=== PATIENT | male | born 1960 | race Caucasian/White ===

== ENCOUNTER 2021-02-20 06:01 | Day surgery (SDC) | payer MEDICARE ==
[~2021-02-20 06:01] MED LIST: Lactated Ringers 1,000 ML IV SCH
[2021-02-20] MEDS ORDERED: Lactated Ringers 1,000 ML IV SCH (06:30)
[2021-02-20] MEDS ORDERED: DIPRIVAN 200 MG/20 ML IV ONE (07:49)
[2021-02-20] MEDS ORDERED: Ketamine HCl 50 MG/ML ONE (07:50)
[2021-02-20] MEDS ORDERED: ROBINUL ONE (07:51)
[2021-02-20 08:59] VITALS: O2SAT 97
[2021-02-20 09:14] VITALS: BP 142/84; PULSE 87
--- NOTE | 2021-02-20 14:43 | OP ---
SURGERY DATE/TIME: 02/20/2021 0750 PREOPERATIVE DIAGNOSIS: Nausea. POSTOPERATIVE DIAGNOSES: 1) Mild diabetic gastroparesis. 2) Moderate gastritis. PROCEDURE: Esophagogastroduodenoscopy. SURGEON: Dr. Rosales. ANESTHESIA: Medications were given by the anesthesia department. BRIEF HISTORY: The patient is a 60 year old white male patient who reports he has problems with chronic nausea over the past month and the past couple of weeks he has been getting better. The patient denies any medications but does take aspirin on a regular basis and he is known to be diabetic. The patient was felt to need to have endoscopic evaluation. He was appraised of the risks of the procedure including the risk of perforation, phlebitis, untoward reaction to medication, bleeding and missed lesions. The patient verbalized his understanding and desired to have the procedure performed. DESCRIPTION OF PROCEDURE: The patient was given the medications by the anesthesia department. He had continuous pulse oximetry, ECG monitoring, intermittent blood pressure monitoring and tidal CO2 monitoring during the examination. He was placed in the left lateral decubitus position. A bite block was placed and the flexible Olympus gastroscope was used to intubate the oropharynx. A view of the larynx was obtained and was essentially normal. The scope was easily introduced in the esophagus which appeared to be normal throughout its length. The stomach was entered where gastric food stuffs were still in his stomach. We were able to pass the scope around this to the gastric antrum. The pylorus is widely patent. The scope was able to be passed into the duodenum which appeared to be essentially normal. The scope was withdrawn towards the stomach. Again, retroflex view was obtained but was partially occluded obscured by the presence of the gastric food stuffs. The scope was then redirected in the gastric antrum and biopsies were obtained to rule out the presence of Helicobacter pylori-type organisms. The scope was then removed from the patient who tolerated the procedure well and was sent back to outpatient recovery in good condition.
== END 2021-02-20 09:18 | disposition home or self-care (01) ==
LOC: SDC 06:01
PROVIDERS: ATTEND Family Medicine
DX: K29.70 Gastritis, unspecified, without bleeding (principal); E11.43 Type 2 diabetes mellitus with diabetic autonomic (poly)neuropathy; K31.84 Gastroparesis; Z79.899 Other long term (current) drug therapy
CPT/HCPCS: 82947; 88305; 88312; J2704

== ENCOUNTER 2021-08-19 14:53 | Emergency (ER) | payer MEDICARE ==
[2021-08-19 15:31] LABS: Absolute Neutrophil Ct (ANC) 5.76 (1.4-6.9); Basophil (Absolute #) 0.02 (0-0.4); Eosinophil % 1.8 % (0.00-5.0); Eosinophil (Absolute #) 0.15 (0-0.5); Hematocrit 50.5 % (42-50); Hemoglobin 16.2 gm/dl (12.5-18.0); Lymphocyte (Absolute #) 1.67 (1.0-4.6); Lymphocytes % 20.2 % (24.0-44.0); Mean Cell Volume 95.8 fl (78-100); Mean Corpuscular Hemoglobin 30.7 pg (26-32); Mean Corpuscular Hgb Concent. 32.1 g/dl (32-36); Mean Platelet Volume 10.5 fl (7.5-11.0); Monocyte (Absolute #) 0.66 (0.0-1.3); Neutrophil % 69.8 % (36.0-66.0); Platelet Count 256 K/mm3 (150-450); Red Blood Count 5.27 M/mm3 (4.1-5.6); Red Cell Distribution Width 14.9 % (11.5-14.0); White Blood Count 8.3 K/mm3 (4.0-10.5)
[2021-08-19 15:39] LABS: INR 1.1 (0.8-3.0)
[2021-08-19 15:41] LABS: PTT 40.4 SECONDS (25.1-36.5)
[2021-08-19 15:42] LABS: ALBUMIN 4.2 g/dL (3.5-5.0); ALKALINE PHOSPHATASE 91 U/L (38-126); ANION GAP 13.1 MEQ/L (5-15); BLOOD UREA NITROGEN 15 mg/dL (9-20); CHLORIDE 96 mmol/L (98-107); Calcium 9.4 mg/dL (8.4-10.2); Carbon Dioxide 33 mmol/L (22-30); Creatinine 1 0.65 mg/dL (0.66-1.25); EST GLOMERULAR FILTRATION RATE > 60.0 ML/MIN; Glucose 225 mg/dL (74-106); Potassium 3.7 mmol/L (3.5-5.1); SGOT/AST 16 U/L (17-59); SGPT/ALT 11 U/L (0-50); SODIUM 138 mmol/L (137-145); Total Protein 7.1 g/dL (6.3-8.2)
[2021-08-19] MEDS ORDERED: DELTASONE 20 MG PO ONE (16:47)
[2021-08-19] MEDS ORDERED: DELTASONE 20 MG ONE (16:48)
[2021-08-19 17:03] VITALS: BP 124/66; PULSE 84; O2SAT 92
--- NOTE | 2021-08-19 17:06 | ERPHSYRPT ---
- History of Present Illness Time Seen by Provider: 08/19/21 14:56 Source: patient Exam Limitations: no limitations Patient Subjective Stated Complaint: PT states "I had an earache in my right ear on and on saturday my mouth started to droop and then my right face s tarted to. I kind of get chocked when I drink a little." Triage Nursing Assessment: Pt presented alert and oriented X 3, skin wpd pt ambulates with an upright steady gait, able to speak in full setences pt has slight slurred speech, pt right side of face is drooped, pt can feel the right side of his face but obvious droop noted. Physician History: 61 years old male presented to the ER with chief complaint of right-sided facial weakness since yesterday. Patient report he had a earache on the right side 2 days ago and the next morning he woke up with his facial droop and some difficulty closing his right eye. He tried to eat and drink but it comes out from the right ankle of mild. He does not have any difficulty swallowing once it is in the throat reports little difficulty speech. No difficulty breathing. Denies any numbness on the face or any other focal numbness tingling or weakness. Patient does report some blurry vision on the right. Timing/Duration: day(s) (1), gradual onset, worse Severity: moderate Character of Deficits: new weakness, impaired speech, Right Facial Deficits: no difficulties Baseline/Normal Cognition: alert oriented x 3 Current Cognition: alert oriented x 3 Baseline Gait: walks w/o assistance Associated Symptoms: vision changes Allergies/Adverse Reactions: amoxicillin Adverse Reaction (Severe, Verified 02/20/21 06:24) Vomiting Home Medications: Glyburide 5 mg [Micronase 5 MG] 4 mg PO BID 01/24/15 [History] Lisinopril/Hydrochlorothiazide [Lisinopril-Hctz 10-12.5 mg Tab] 20 mg PO DAILY 01/24/15 [History] Aspirin 81 mg PO DAILY 02/16/21 [History] Dulaglutide [Trulicity] 1.5 mg SQ WEEKLY 02/16/21 [History] Duloxetine HCl [Cymbalta] 60 mg PO DAILY 02/16/21 [History] Gabapentin 300 mg [Neurontin 300 mg] 300 mg PO BID 02/16/21 [History] Gemfibrozil [Lopid] 600 mg PO BID 02/16/21 [History] Insulin Glargine,Hum.rec.anlog [Lantus] 40 unit SQ DAILY 02/16/21 [History] Insulin Lispro [Insulin Lispro Kwikpen U-100] 5 unit SQ TIDWMEALS 02/16/21 [History] Metoprolol Succinate 25 mg Xl* [Toprol-Xl 25MG Tablets] 25 mg PO DAILY [History] Pioglitazone HCl [Actos] 45 mg PO DAILY 02/16/21 [History] Pravastatin Sodium 80 mg PO DAILY 02/16/21 [History] Sitagliptin Phosphate [Januvia] 100 mg PO DAILY 02/16/21 [History] Tamsulosin HCl 0.4 mg [Flomax 0.4 MG] 0.4 mg PO DAILY 02/16/21 [History] levETIRAcetam [Levetiracetam ER] 750 mg PO BID 02/16/21 [History] Hx Tetanus, Diphtheria Vaccination/Date Given: No Hx Influenza Vaccination/Date Given: No Hx Pneumococcal Vaccination/Date Given: Yes Immunizations Up to Date: Yes Travel Risk - International Travel Have you traveled outside of the country in past 3 weeks: No - Coronavirus Screening Are you exhibiting any of the following symptoms?: No Close contact with a COVID-19 positive Pt in past 14-21 Days: No - Vaccine Status Have you recieved a Covid-19 vaccination: Yes 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 - Vaccination Dates Date of 2cond Vaccination (if applicable): 2020 - Review of Systems Constitutional: No Symptoms Eyes: Vision Changes Ears, Nose, & Throat: Ear Pain Respiratory: No Symptoms Cardiac: No Symptoms Abdominal/Gastrointestinal: No Symptoms Genitourinary Symptoms: No Symptoms Musculoskeletal: No Symptoms Neurological: Paralysis Psychological: No Symptoms Endocrine: No Symptoms Hematologic/Lymphatic: No Symptoms Immunological/Allergic: No Symptoms - Past Medical History Pertinent Past Medical History: Yes Neurological History: Peripheral Neuropathy, Seizures ENT History: Cataracts Cardiac History: Arrhythmia Respiratory History: Sleep Apnea Endocrine Medical History: Diabetes Type II Musculoskeletal History: Arthritis GI Medical History: No Pertinent History History: No Pertinent History Psycho-Social History: No Pertinent History Male Reproductive Disorders: Prostate Problems - Past Surgical History Past Surgical History: Yes Neuro Surgical History: No Pertinent History Cardiac: No Pertinent History Respiratory: No Pertinent History Gastrointestinal: Cholecystectomy Genitourinary: No Pertinent History Musculoskeletal: Joint Replacement Male Surgical History: No Pertinent History Other Surgical History: left knee, - Social History Smoking Status: Current every day smoker How long have you smoked: years Exposure to second hand smoke: Yes Drug Use: none Patient Lives Alone: No - Nursing Vital Signs Nursing Vital Signs: Initial Vital Signs Temperature 97.7 F 08/19/21 15:05 Pulse Rate 98 H 08/19/21 15:05 Respiratory Rate 20 08/19/21 15:05 Blood Pressure 149/78 08/19/21 15:05 O2 Sat by Pulse Oximetry 94 L 08/19/21 15:05 Pain Scale Pain Intensity 0 - Elvia Coma Scale Best Eye Response ([place]): (4) open spontaneously Best Verbal Response ([place]): (5) oriented Best Motor Response ([place]): (6) obeys commands [place] Total: 15 - Physical Exam General Appearance: no apparent distress Eye Exam: bilateral eye: normal inspection, PERRL, EOMI Ears, Nose, Throat Exam: TMs normal, pharynx normal Neck Exam: normal inspection, non-tender, supple, full range of motion, No meningismus Respiratory: normal breath sounds, lungs clear Cardiovascular: regular rate/rhythm, normal heart sounds Gastrointestinal: soft Back Exam: normal inspection, normal range of motion Extremity Exam: normal inspection, normal range of motion, pelvis stable Mental Status: alert, oriented 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, 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 Exam: normal hearing, normal speech, facial asymmetry (Right facial droop), facial droop, facial weakness Coordination/Gait: normal finger to nose, normal gait, negative Romberg's sign Motor/Sensory: no sensory deficit, no pronator drift, negative Babinski's sign DTR: bicep (R): 2+, bicep (L): 2+, knee (R): 2+, knee (L): 2+ Skin Exam: normal color SpO2 Interpretation: normal SpO2: 92 O2 Delivery: Room Air - Course EKG Interpreted by Me: RATE (92), Sinus Rhythm, Left Jackson Deviation, LAFB, NORMAL INTERVALS, Non-specific ST Changes Ordered Tests: Active Orders 24 hr Category Date Time 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 Care 08/19/21 15:18 Completed EKG-ER Only STAT Care 08/19/21 15:17 Completed IV Insertion STAT Care 08/19/21 15:17 Completed NPO (ED) STAT Care 08/19/21 15:17 Completed Consult Tele-Health [Tele-Health Consult] ROUTINE Cons 08/19/21 16:22 Completed CHEST 1 VIEW (PORTABLE) Stat Exams 08/19/21 15:18 Completed HEAD WITHOUT CONTRAST [CT] Stat Exams 08/19/21 15:18 Completed CBC W DIFF Stat Lab 08/19/21 15:15 Completed CMP Stat Lab 08/19/21 15:15 Completed POCT GLUCOSE Stat Lab 08/19/21 15:18 Completed PROTIME WITH INR Stat Lab 08/19/21 15:15 Completed PTT Stat Lab 08/19/21 15:15 Completed TROPONIN Q3H Lab 08/19/21 15:15 Completed Medication Summary Discontinued Medications Generic Name Dose Route Start Last Admin Trade Name Freq PRN Reason Stop Dose Admin Prednisone 60 mg 08/19/21 16:47 08/19/21 16:48 Prednisone 20 Mg Tablet PO 08/19/21 16:48 60 mg STAT ONE Administration Prednisone Confirm 08/19/21 16:48 Prednisone 20 Mg Tablet Administered 08/19/21 16:49 Dose 60 mg .ROUTE .STK-MED ONE Lab/Rad Data: Laboratory Result Diagrams 08/19/21 15:15 08/19/21 15:15 Laboratory Results 08/19/21 08/19/21 08/19/21 Range/Units 15:18 15:15 15:15 WBC (4.0-10.5) K/mm3 RBC (4.1-5.6) M/mm3 Hgb (12.5-18.0) gm/dl Hct (42-50) % MCV (78-100) fl MCH (26-32) pg MCHC (32-36) g/dl RDW (11.5-14.0) % Plt Count (150-450) K/mm3 MPV (7.5-11.0) fl Gran % (36.0-66.0) % Eos # (Auto) (0-0.5) Absolute Lymphs (auto) (1.0-4.6) Absolute Monos (auto) (0.0-1.3) Lymphocytes % (24.0-44.0) % Monocytes % (0.0-12.0) % Eosinophils % (0.00-5.0) % Basophils % (0.0-0.4) % Absolute Granulocytes (1.4-6.9) Basophils # (0-0.4) PT 13.0 H (9.4-12.5) SECONDS INR 1.10 (0.8-3.0) APTT 40.4 H (25.1-36.5) SECONDS Sodium (137-145) mmol/L Potassium (3.5-5.1) mmol/L Chloride (98-107) mmol/L Carbon Dioxide (22-30) mmol/L Anion Gap (5-15) MEQ/L BUN (9-20) mg/dL Creatinine (0.66-1.25) mg/dL Estimated GFR ML/MIN Glucose (74-106) mg/dL POC Glucometer 232 H (74 to 106) mg/dL Calcium (8.4-10.2) mg/dL Total Bilirubin (0.2-1.3) mg/dL AST (17-59) U/L ALT (0-50) U/L Alkaline Phosphatase (38-126) U/L Troponin I < 0.012 (0.000-0.034) ng/mL Serum Total Protein (6.3-8.2) g/dL Albumin (3.5-5.0) g/dL 08/19/21 08/19/21 Range/Units 15:15 15:15 WBC 8.3 (4.0-10.5) K/mm3 RBC 5.27 (4.1-5.6) M/mm3 Hgb 16.2 (12.5-18.0) gm/dl Hct 50.5 H (42-50) % MCV 95.8 (78-100) fl MCH 30.7 (26-32) pg MCHC 32.1 (32-36) g/dl RDW 14.9 H (11.5-14.0) % Plt Count 256 (150-450) K/mm3 MPV 10.5 (7.5-11.0) fl Gran % 69.8 H (36.0-66.0) % Eos # (Auto) 0.15 (0-0.5) Absolute Lymphs (auto) 1.67 (1.0-4.6) Absolute Monos (auto) 0.66 (0.0-1.3) Lymphocytes % 20.2 L (24.0-44.0) % Monocytes % 8.0 (0.0-12.0) % Eosinophils % 1.8 (0.00-5.0) % Basophils % 0.2 (0.0-0.4) % Absolute Granulocytes 5.76 (1.4-6.9) Basophils # 0.02 (0-0.4) PT (9.4-12.5) SECONDS INR (0.8-3.0) APTT (25.1-36.5) SECONDS Sodium 138 (137-145) mmol/L Potassium 3.7 (3.5-5.1) mmol/L Chloride 96 L (98-107) mmol/L Carbon Dioxide 33 H (22-30) mmol/L Anion Gap 13.1 (5-15) MEQ/L BUN 15 (9-20) mg/dL Creatinine 0.65 L (0.66-1.25) mg/dL Estimated GFR > 60.0 ML/MIN Glucose 225 H (74-106) mg/dL POC Glucometer (74 to 106) mg/dL Calcium 9.4 (8.4-10.2) mg/dL Total Bilirubin 0.40 (0.2-1.3) mg/dL AST 16 L (17-59) U/L ALT 11 (0-50) U/L Alkaline Phosphatase 91 (38-126) U/L Troponin I (0.000-0.034) ng/mL Serum Total Protein 7.1 (6.3-8.2) g/dL Albumin 4.2 (3.5-5.0) g/dL - Progress Progress: unchanged Progress Note: 08/19/21 17:09 Patient is made stroke activated, prompt CT head is obtained. No acute findings on the CT head. 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 Outpatient neurology follow-up recommended. Discussed signs symptoms of worsening needing return to ER which patient seems understanding. Counseled pt/family regarding: diagnosis, need for follow-up, rad results - Departure Departure Disposition: Home Clinical Impression: Lockhart's palsy Condition: Stable Critical Care Time: No Referrals: DARCY,KWESI STAN, MD [Primary Care Provider] - Follow up/PCP as directed (In 2 days for reevaluation) GOMEZ PURCELL [NON-STAFF PHY W/O PRIVILEGES] - Follow up/PCP as directed (Call for appointment for reevaluation.) Instructions: Stroke, Lockhart's Palsy, Lockhart's Palsy (DC) Additional Instructions: Follow-up with primary care and neurologist for reevaluation. Use eye patch especially at nighttime and also artificial tears. Continue with steroid and antiviral medication. Monitor your blood sugar regularly, keep a log and may need to increase dose of antidiabetic medication as steroid can increase your blood sugar. Talk to your primary care about it. Prescriptions: Prednisone 20 mg [Deltasone 20 mg] 60 mg PO DAILY 5 Days #18 tablet Valacyclovir HCl [Valtrex] 1,000 mg PO TID #21 tablet
--- NOTE | 2021-08-19 18:13 | XRAY ---
Indication: Right facial numbness and drooping. Multiple contiguous axial images obtained through the head without contrast. Comparison: February 13, 2019. Age-appropriate global atrophy and mild periventricular degenerative micro-ischemia bilaterally. No acute intracranial hemorrhage, abnormal extra-axial fluid collection, or mass effect. Fourth ventricle is midline without hydrocephalus. Bony calvarium intact. Stable 1.8 cm partially calcified sebaceous cyst right posterior scalp. Visualized paranasal sinuses are clear. Impression: Nonacute senile brain. Again incidental right posterior scalp sebaceous cyst. Comment: Preliminary interpretation made by [facility]. No critical discrepancy.
--- NOTE | 2021-08-19 18:16 | XRAY ---
Indication: Stroke symptoms. Comparison: May 11, 2011. Portable chest remains clear. Heart not enlarged for AP portable technique. Bony thorax intact again with mild osteopenia and degenerative changes. Impression: Continued nonacute chest with chronic bony findings.
== END 2021-08-19 17:18 | disposition home or self-care (01) ==
LOC: ED 14:53
DX: G51.0 Bell's palsy (principal); R47.81 Slurred speech; H53.8 Other visual disturbances; E11.42 Type 2 diabetes mellitus with diabetic polyneuropathy; Z79.4 Long term (current) use of insulin; Z72.0 Tobacco use; Z79.899 Other long term (current) drug therapy; Z79.52 Long term (current) use of systemic steroids
CPT/HCPCS: 36000; 36415; 70450; 71045; 80053; 82947; 84484; 85025; 85610; 85730; 93005; 93041; 99284; A9270-GY

== ENCOUNTER 2022-06-09 09:52 | Observation (INO) | payer MEDICARE, SELFPAY ==
[2022-06-09] MEDS ORDERED: DUONEB 0.5-3 MG/3 ml Neb IH ONE ×2 (10:09→10:11)
[2022-06-09] MEDS ORDERED: solu-MEDROL 125 MG, Sterile H2O 10 ml 2 ML IV ONE ×2 (10:09)
[2022-06-09] MEDS ORDERED: BABY ASPIRIN 81 MG CHEW PO ONE (10:10)
[2022-06-09] MEDS ORDERED: Sterile H2O 10 ml IJ ONE (10:28)
[2022-06-09] MEDS ORDERED: solu-MEDROL ONE (10:28)
[2022-06-09 10:42] LABS: Basophil (Absolute #) 0.03 x10^3/uL (0-0.4); Eosinophil (Absolute #) 0 x10^3/uL (0-0.5); Hematocrit 49.7 % (42-50); Hemoglobin 16.3 g/dL (12.5-18.0); Lymphocyte (Absolute #) 0.53 x10^3/uL (1.0-4.6); Lymphocytes % 7.6 % (24.0-44.0); Mean Cell Volume 93.6 fL (78-100); Mean Corpuscular Hemoglobin 30.7 pg (26-32); Mean Corpuscular Hgb Concent. 32.8 g/dL (32-36); Mean Platelet Volume 10.2 fL (7.5-11.0); Monocyte (Absolute #) 0.58 x10^3/uL (0.0-1.3); Monocytes % 8.3 % (0.0-12.0); Neutrophil % 83.4 % (36.0-66.0); Platelet Count 184 x10^3/uL (150-450); Red Blood Count 5.31 x10^6/uL (4.1-5.6); Red Cell Distribution Width 15.6 % (11.5-14.0)
[2022-06-09] MEDS ORDERED: Zithromax 500 MG/ 250 ML NaCl Premix 500 MG/250 ML IVPB IV STA (11:07)
[2022-06-09 11:14] LABS: ALBUMIN 4.1 g/dL (3.5-5.0); ALKALINE PHOSPHATASE 83 U/L (38-126); ANION GAP 11.3 MEQ/L (5-15); BLOOD UREA NITROGEN 12 mg/dL (9-20); CHLORIDE 96 mmol/L (98-107); Calcium 8.7 mg/dL (8.4-10.2); Carbon Dioxide 28 mmol/L (22-30); Creatinine 1 0.48 mg/dL (0.66-1.25); EST GLOMERULAR FILTRATION RATE > 60.0 ML/MIN; Glucose 265 mg/dL (74-106); MAGNESIUM 1.8 mg/dL (1.6-2.3); NT PRO BNP 231 pg/mL (0-900); Potassium 3.7 mmol/L (3.5-5.1); SGOT/AST 33 U/L (17-59); SGPT/ALT 23 U/L (0-50); SODIUM 131 mmol/L (137-145); Total Protein 7.2 g/dL (6.3-8.2)
[2022-06-09] MEDS ORDERED: ROCEPHIN 2 Gm-D5w 50ML BAG** 2 G/50 ML IVPB IV ONE (11:17)
[2022-06-09 12:03] LABS: INFLUENZA B NEGATIVE (NEGATIVE); RESPIRATORY SYNCTIAL VIRUS NEGATIVE (Negative); SARS-CoV-2 Xpert Express NEGATIVE (NEGATIVE)
[2022-06-09 12:10] LABS: INFLUENZA A POSITIVE (NEGATIVE)
[2022-06-09] MEDS ORDERED: Zithromax 500 MG/ 250 ML NaCl Premix 500 MG/250 ML IVPB IV ONE (12:11)
[2022-06-09] MEDS ORDERED: Sodium Chloride 0.9% 500 ML 500 ML IV ONE ×2 (12:56→12:57)
[2022-06-09] MEDS ORDERED: Tamiflu 75MG Capsule PO ONE ×2 (13:04→13:05)
--- NOTE | 2022-06-09 13:13 | ERPHSYRPT ---
- History of Present Illness Time Seen by Provider: 06/09/22 10:09 Patient Subjective Stated Complaint: Chest pain/ SOB Triage Nursing Assessment: Patient brought back to ED per w/c and transferred to bed with assist of 1. Patient A+O X 3. Patient was brought back for Chest pain, but denied chest pain and stated he is SOB. Patient states he has been "sick" for the past two weeks. Patient suppose to wear O2 at 3.5 liters per N/C at all times but did not wear it to ER. Patient's initial sats 75% on room air. Patient placed on non rebreather 100% that brought O2 to 98%. Patient then placed on O2 at 4 liters per N/C that brought him up to 94%. Patient complains of body aches all over. Lungs noted to have wheezing throughout. Patient also complains of non productive cough. Physician History: 62 years old male with history of chronic respiratory failure secondary to COPD on oxygen 3 L, heavy tobacco use, hypertension, hyperlipidemia, diabetes mellitus presented in the ER with chief complaint of 2 weeks history of gradually increasing cough and shortness of breath with chest tightness, increased wheezing. Partial relief with taking neb treatments but for the last couple of days feeling weak fatigued tired and not himself. Getting short of breath with minimal activity. Patient did not have his oxygen on the way to the ER and is satting around 75%, placed on nonrebreather and improved to upper 90s. Timing/Duration: week(s) (2), gradual onset, worse Activities at Onset: activity Severity of Dyspnea-Max: moderate Severity of Dyspnea-Current: moderate Possible Cause: unknown cause Modifying Factors: Improves With: albuterol nebulizer. Worsens With: coughing, exertion Associated Symptoms: cough, chest pain/discomfort, wheezing, heaviness, productive cough, tightness, No ankle swelling, No painful breathing Allergies/Adverse Reactions: amoxicillin Adverse Reaction (Severe, Verified 06/09/22 09:56) Vomiting Home Medications: Glyburide 5 mg [Micronase 5 MG] 4 mg PO BID 01/24/15 [History] Aspirin 81 mg PO DAILY 02/16/21 [History] Dulaglutide [Trulicity] 3 mg SQ WEEKLY 02/16/21 [History] Duloxetine HCl [Cymbalta] 60 mg PO DAILY 02/16/21 [History] Gabapentin [Neurontin ] 300 mg PO TID PRN 02/16/21 [History] Gemfibrozil [Lopid] 600 mg PO BID 02/16/21 [History] Pioglitazone HCl [Actos] 30 mg PO DAILY 02/16/21 [History] Pravastatin Sodium 80 mg PO DAILY 02/16/21 [History] Sitagliptin Phosphate [Januvia] 100 mg PO DAILY 02/16/21 [History] Tamsulosin HCl 0.4 mg [Flomax 0.4 MG] 0.4 mg PO HS 02/16/21 [History] Insulin Glargine [Lantus Insulin] 30 units SQ HS 10/24/21 [History] Insulin Lispro [Humalog Darvin Kwikpen] 12 unit SQ HS 10/24/21 [History] Levetiracetam [Keppra] 1,000 mg PO HS 10/24/21 [History] Lisinopril/Hydrochlorothiazide [Lisinopril-Hctz 20-25 mg Tab] 1 each PO DAILY 10/24/21 [History] Clopidogrel Bisulfate [Clopidogrel] 1 tab PO DAILY 06/09/22 [History] Hydrochlorothiazide 25 mg [hydroDIURIL 25 MG] 1 tab PO DAILY 06/09/22 [History] Metoclopramide HCl 5 mg [Reglan 5 MG] 1 tab PO TID 06/09/22 [History] Metoprolol Succinate 50 mg [Toprol Xl 50 MG] 1 tab PO BID 06/09/22 [History] PANTOPRAZOLE 40 mg Tablet [Protonix 40MG Tablet] 1 tab PO DAILY 06/09/22 [History] Sitagliptin Phos/Metformin HCl [Janumet Xr 100-1,000 mg Tablet] 1 tab PO BID 06/09/22 [History] levETIRAcetam [Levetiracetam] 1,500 mg PO DAILY 06/09/22 [History] Hx Tetanus, Diphtheria Vaccination/Date Given: No Hx Influenza Vaccination/Date Given: No Hx Pneumococcal Vaccination/Date Given: Yes Immunizations Up to Date: Yes Travel Risk - International Travel Have you traveled outside of the country in past 3 weeks: No - Coronavirus Screening Are you exhibiting any of the following symptoms?: Yes Symptoms: Cough: New Onset, Shortness of Breath, Headaches/Body Aches/Fatigue Close contact with a COVID-19 positive Pt in past 14-21 Days: No - Vaccine Status Have you recieved a Covid-19 vaccination: Yes [place]: Moderna - Vaccination Dates Date of 2cond Vaccination (if applicable): 2020 Comment: booster as well - Review of Systems Constitutional: Fatigue, Weakness Eyes: No Symptoms Ears, Nose, & Throat: No Symptoms Respiratory: Cough, Dyspnea, Dyspnea on Exertion (SHRESTHA), Wheezing Cardiac: Chest Pain Abdominal/Gastrointestinal: No Symptoms Genitourinary Symptoms: No Symptoms Musculoskeletal: Arthralgias Skin: No Symptoms Psychological: No Symptoms Endocrine: No Symptoms Hematologic/Lymphatic: No Symptoms Immunological/Allergic: No Symptoms - Past Medical History Pertinent Past Medical History: Yes Neurological History: Peripheral Neuropathy, Seizures ENT History: Cataracts Cardiac History: Arrhythmia Respiratory History: Sleep Apnea Endocrine Medical History: Diabetes Type II Musculoskeletal History: Arthritis GI Medical History: No Pertinent History History: No Pertinent History Psycho-Social History: No Pertinent History Male Reproductive Disorders: Prostate Problems - Past Surgical History Past Surgical History: Yes Neuro Surgical History: No Pertinent History Cardiac: No Pertinent History Respiratory: No Pertinent History Gastrointestinal: Cholecystectomy Genitourinary: No Pertinent History Musculoskeletal: Joint Replacement Male Surgical History: No Pertinent History Other Surgical History: left knee, - Social History Smoking Status: Current every day smoker How long have you smoked: 50 years Exposure to second hand smoke: Yes Drug Use: none Patient Lives Alone: No - Nursing Vital Signs Nursing Vital Signs: Initial Vital Signs Temperature 98.2 F 06/09/22 09:57 Pulse Rate 115 H 06/09/22 09:57 Respiratory Rate 25 H 06/09/22 09:57 Blood Pressure 173/94 06/09/22 09:57 O2 Sat by Pulse Oximetry 75 L 06/09/22 09:57 Pain Scale Pain Intensity 0 - Physical Exam General Appearance: mild distress, alert Eye Exam: PERRL/EOMI, eyes nml inspection Ears, Nose, Throat Exam: hearing grossly normal, pharyngeal erythema Neck Exam: normal inspection, non-tender, full range of motion Respiratory Exam: diminished breath sounds, accessory muscle use, rhonchi, wheezing Cardiovascular/Chest Exam: normal heart sounds, tachycardia Abdominal/Gastrointestinal Exam: soft, No tenderness Extremity Exam: non-tender, normal range of motion Neurologic Exam: alert, oriented x 3, cooperative Skin Exam: normal color SpO2 Interpretation: hypoxic SpO2: 94 O2 Delivery: Nasal Cannula Ordered Tests: Active Orders 24 hr Category Date Time Status 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 STAT Care 06/09/22 10:09 Active EKG-ER Only STAT Care 06/09/22 10:09 Active IV Insertion STAT Care 06/09/22 10:09 Active Oxygen-ED Only Nasal Cannula 3 lpm Care 06/09/22 10:09 Active CHEST 1 VIEW (PORTABLE) Stat Exams 06/09/22 11:00 Taken BLOOD CULTURE Stat Lab 06/09/22 10:22 Received CBC W DIFF Stat Lab 06/09/22 10:22 Completed CMP Stat Lab 06/09/22 10:22 Completed Lactic Acid Stat Lab 06/09/22 10:25 Completed MAGNESIUM Stat Lab 06/09/22 10:22 Completed NT PRO BNP Stat Lab 06/09/22 10:22 Completed PROCALCITONIN Stat Lab 06/09/22 10:22 Completed TROPONIN Q4H Lab 06/09/22 10:22 Completed TROPONIN Q4H Lab 06/09/22 14:15 Ordered TROPONIN Q4H Lab 06/09/22 18:15 Ordered Respiratory Therapy Assessment DAILY RT 06/09/22 10:17 Active Medication Summary Generic Name Dose Route Start Last Admin Trade Name Freq PRN Reason Stop Dose Admin Ceftriaxone Sodium/Dextrose 2 g in 50 mls @ 100 mls/hr 06/10/22 10:00 06/09/22 11:50 Rocephin 2 Gm-D5w 50ml Bag IV 06/13/22 09:59 Infused Q24H10 ROWDY Infusion Sodium Chloride 500 mls @ 500 mls/hr 06/09/22 12:56 06/09/22 12:59 Sodium Chloride 0.9% 500 Ml IV 06/09/22 13:55 500 mls/hr .Q1H ONE Administration Discontinued Medications Generic Name Dose Route Start Last Admin Trade Name Freq PRN Reason Stop Dose Admin Albuterol/Ipratropium 3 ml 06/09/22 10:09 06/09/22 10:13 Ipratropium/Albuterol Sulfate 3 Ml Ampul.Neb IH 06/09/22 10:10 3 ml STAT ONE Administration Albuterol/Ipratropium Confirm 06/09/22 10:11 Ipratropium/Albuterol Sulfate 3 Ml Ampul.Neb Administered 06/09/22 10:12 Dose 3 ml IH .STK-MED ONE Aspirin 324 mg 06/09/22 10:10 06/09/22 10:25 Aspirin 81 Mg Tab.Chew PO 06/09/22 10:11 324 mg STAT ONE Administration Methylprednisolone Sodium 0 mg 06/09/22 10:09 06/09/22 10:29 Succinate 125 mg/ Sterile IV 06/09/22 10:10 125 mg Water 2 ml STAT ONE Administration Azithromycin 500 mg in 250 mls @ 250 mls/hr 06/09/22 11:07 06/09/22 12:14 Zithromax 500 Mg/ 250 Ml Nacl Premix IV 06/09/22 12:06 250 mls/hr STAT STA 250 mls/hr Administration Ceftriaxone Sodium/Dextrose Confirm 06/09/22 11:17 Rocephin 2 Gm-D5w 50ml Bag Administered 06/09/22 11:18 Dose 2 g in 50 mls @ ud IV .STK-MED ONE Azithromycin Confirm 06/09/22 12:11 Zithromax 500 Mg/ 250 Ml Nacl Premix Administered 06/09/22 12:12 Dose 500 mg in 250 mls @ ud IV .STK-MED ONE Sodium Chloride Confirm 06/09/22 12:57 Sodium Chloride 0.9% 500 Ml Administered 06/09/22 12:58 Dose 500 mls @ ud IV .STK-MED ONE Methylprednisolone Sodium Succinate Confirm 06/09/22 10:28 Methylprednis Sod Succ 125 Mg/2 Ml Vial Administered 06/09/22 10:29 Dose 125 mg .ROUTE .STK-MED ONE Oseltamivir Phosphate 75 mg 06/09/22 13:04 06/09/22 13:05 Oseltamivir 75 Mg Cap PO 06/09/22 13:05 75 mg STAT ONE Administration Sterile Water Confirm 06/09/22 10:28 Water For Injection,Sterile 10 Ml Vial Administered 06/09/22 10:29 Dose 10 ml IJ .STK-MED ONE Lab/Rad Data: Laboratory Result Diagrams 06/09/22 10:22 06/09/22 10:22 Laboratory Results 06/09/22 06/09/22 06/09/22 Range/Units Unknown 10:25 10:22 WBC (4.0-10.5) x10^3/uL RBC (4.1-5.6) x10^6/uL Hgb (12.5-18.0) g/dL Hct (42-50) % MCV (78-100) fL MCH (26-32) pg MCHC (32-36) g/dL RDW (11.5-14.0) % Plt Count (150-450) x10^3/uL MPV (7.5-11.0) fL Gran % (36.0-66.0) % Immature Gran % (Auto) (0.00-0.4) % Nucleat RBC Rel Count (0.00-0.1) % Eos # (Auto) (0-0.5) x10^3/uL Immature Gran # (Auto) (0.00-0.03) x10^3u/L Absolute Lymphs (auto) (1.0-4.6) x10^3/uL Absolute Monos (auto) (0.0-1.3) x10^3/uL Absolute Nucleated RBC (0.00-0.01) x10^3u/L Lymphocytes % (24.0-44.0) % Monocytes % (0.0-12.0) % Eosinophils % (0.00-5.0) % Basophils % (0.0-0.4) % Absolute Granulocytes (1.4-6.9) x10^3/uL Basophils # (0-0.4) x10^3/uL Sodium (137-145) mmol/L Potassium (3.5-5.1) mmol/L Chloride (98-107) mmol/L Carbon Dioxide (22-30) mmol/L Anion Gap (5-15) MEQ/L BUN (9-20) mg/dL Creatinine (0.66-1.25) mg/dL Estimated GFR ML/MIN Glucose (74-106) mg/dL Lactic Acid 1.2 (0.4-2.0) Calcium (8.4-10.2) mg/dL Magnesium (1.6-2.3) mg/dL Total Bilirubin (0.2-1.3) mg/dL AST (17-59) U/L ALT (0-50) U/L Alkaline Phosphatase (38-126) U/L Troponin I (0.000-0.034) ng/mL NT-Pro-B Natriuret Pep (0-900) pg/mL Serum Total Protein (6.3-8.2) g/dL Albumin (3.5-5.0) g/dL Procalcitonin 0.064 (0.030-0.080) ng/mL Influenza Type A Ag POSITIVE (NEGATIVE) Influenza Type B Ag NEGATIVE (NEGATIVE) RSV (PCR) NEGATIVE (Negative) SARS-CoV-2 (PCR) NEGATIVE (NEGATIVE) 06/09/22 06/09/22 06/09/22 Range/Units 10:22 10:22 10:22 WBC 7.0 (4.0-10.5) x10^3/uL RBC 5.31 (4.1-5.6) x10^6/uL Hgb 16.3 (12.5-18.0) g/dL Hct 49.7 (42-50) % MCV 93.6 (78-100) fL MCH 30.7 (26-32) pg MCHC 32.8 (32-36) g/dL RDW 15.6 H (11.5-14.0) % Plt Count 184 (150-450) x10^3/uL MPV 10.2 (7.5-11.0) fL Gran % 83.4 H (36.0-66.0) % Immature Gran % (Auto) 0.3 (0.00-0.4) % Nucleat RBC Rel Count 0.0 (0.00-0.1) % Eos # (Auto) 0 (0-0.5) x10^3/uL Immature Gran # (Auto) 0.02 (0.00-0.03) x10^3u/L Absolute Lymphs (auto) 0.53 L (1.0-4.6) x10^3/uL Absolute Monos (auto) 0.58 (0.0-1.3) x10^3/uL Absolute Nucleated RBC 0.00 (0.00-0.01) x10^3u/L Lymphocytes % 7.6 L (24.0-44.0) % Monocytes % 8.3 (0.0-12.0) % Eosinophils % 0.0 (0.00-5.0) % Basophils % 0.4 (0.0-0.4) % Absolute Granulocytes 5.80 (1.4-6.9) x10^3/uL Basophils # 0.03 (0-0.4) x10^3/uL Sodium 131 L (137-145) mmol/L Potassium 3.7 (3.5-5.1) mmol/L Chloride 96 L (98-107) mmol/L Carbon Dioxide 28 (22-30) mmol/L Anion Gap 11.3 (5-15) MEQ/L BUN 12 (9-20) mg/dL Creatinine 0.48 L (0.66-1.25) mg/dL Estimated GFR > 60.0 ML/MIN Glucose 265 H (74-106) mg/dL Lactic Acid (0.4-2.0) Calcium 8.7 (8.4-10.2) mg/dL Magnesium 1.8 (1.6-2.3) mg/dL Total Bilirubin 0.80 (0.2-1.3) mg/dL AST 33 (17-59) U/L ALT 23 (0-50) U/L Alkaline Phosphatase 83 (38-126) U/L Troponin I 0.018 (0.000-0.034) ng/mL NT-Pro-B Natriuret Pep 231 (0-900) pg/mL Serum Total Protein 7.2 (6.3-8.2) g/dL Albumin 4.1 (3.5-5.0) g/dL Procalcitonin (0.030-0.080) ng/mL Influenza Type A Ag (NEGATIVE) Influenza Type B Ag (NEGATIVE) RSV (PCR) (Negative) SARS-CoV-2 (PCR) (NEGATIVE) - Progress Progress: re-examined Air Movement: fair Progress Note: 06/09/22 13:15 62 years old with COPD respiratory failure is evaluated for worsening shortness of breath. Given DuoNeb and Solu-Medrol, initially placed on nonrebreather followed by 4 L oxygen and satting around low 90s. Chest x-ray reviewed by me showed bilateral airspace disease and given a dose of antibiotic Rocephin and Zithromax. Work-up showed normal white count, lactate and procalcitonin. Negative initial troponins. Patient does have positive influenza and started on Tamiflu. I believe patient has a combination of COPD exacerbation with some element of pneumonia which is probably viral etiology. Discussed with Dr. Frank and patient is admitted. Blood Culture(s) Obtained: Yes Antibiotics given: Yes Discussed with : Trisha Will see patient in: hospital (observation) Counseled pt/family regarding: lab results, diagnosis, rad results, smoking cessation - Departure Departure Disposition: Observation Clinical Impression: COPD exacerbation, Influenza A, Pneumonia Condition: Stable Critical Care Time: No Referrals: KWESI TAVERAS MD [Primary Care Provider] - Follow up/PCP as directed Instructions: Chronic Obstructive Pulmonary Disease
[2022-06-09] MEDS ORDERED: MORPHINE SULFATE 2 MG INJ IV PRN (13:27)
[2022-06-09] MEDS ORDERED: TYLENOL 325 MG PO PRN (13:27)
[2022-06-09] MEDS ORDERED: Zofran 4 MG/2 ML VIAL IV PRN (13:27)
[2022-06-09 13:56] LABS: Slide Review 1 YES
[2022-06-09] MEDS: Nicoderm CQ 21 MG TOP SCH (14:51)
[2022-06-09] MEDS: Ativan 0.5 MG PO SCH ×2 (14:51→21:18)
[2022-06-09] MEDS ORDERED: NON-FORMULARY ITEM (Dulaglutide [Trulicity] 0.75 MG/0.5 ML Pen.Injctr) SQ SCH (15:15)
[2022-06-09] MEDS ORDERED: MEDICATION INTERVENTION MC SCH ×2 (15:30)
[2022-06-09] MEDS: ENOXAPARIN SODIUM SQ SCH (17:17)
[2022-06-09] MEDS: HUMALOG SQ PRN ×2 (17:17→22:00)
[2022-06-09] MEDS: Cymbalta 30 MG Capsule PO SCH (17:17)
[2022-06-09] MEDS: solu-MEDROL 60 MG, Sterile H2O 10 ml 2 ML IV SCH ×4 (17:17→23:39)
[2022-06-09] MEDS: Januvia 50 MG PO SCH (17:18)
[2022-06-09] MEDS: AMARYL 4 MG PO SCH (17:18)
[2022-06-09] MEDS: Glucophage 500 MG PO SCH (17:18)
[2022-06-09] MEDS: KEPPRA PO SCH (17:18)
[2022-06-09] MEDS: Protonix 40MG Tablet PO SCH (17:18)
[2022-06-09] MEDS: Reglan 10 MG PO SCH ×2 (17:18→21:17)
[2022-06-09] MEDS: Zestril 20 MG PO SCH (17:18)
[2022-06-09] MEDS: hydroDIURIL 25 MG PO SCH ×2 (17:19)
[2022-06-09] MEDS: Aldactone 25 MG PO SCH (17:19)
[2022-06-09] MEDS: PATIENT OWN MEDICATION PO SCH (17:20)
--- NOTE | 2022-06-09 19:39 | XRAY ---
Indication: Short of breath. Comparison: October 27, 2021 Portable chest demonstrates new hazy bilateral mid to lower lung interstitial alveolar opacities without consolidation/large effusion. Heart not enlarged. Bony thorax intact again with osteopenia and degenerative changes.
[2022-06-09] MEDS: DUONEB 0.5-3 MG/3 ml Neb IH SCH (20:47)
[2022-06-09] MEDS: Flomax 0.4 MG PO SCH (21:17)
[2022-06-09] MEDS: Toprol Xl 50 MG PO SCH (21:17)
[2022-06-09] MEDS: Lantus Insulin SQ SCH (21:17)
[2022-06-09] MEDS: NEURONTIN PO SCH (21:18)
[2022-06-09] MEDS: Tamiflu 75MG Capsule PO SCH (21:18)
[2022-06-09] MEDS: ZOCOR 20MG PO SCH (21:18)
[2022-06-09] MEDS: THEOPHYLLINE ER 24HR PO SCH (21:19)
[2022-06-09] MEDS: LOPID PO SCH (21:24)
[2022-06-09] MEDS ORDERED: NON-FORMULARY ITEM (Pravastatin Sodium [Pravastatin Sodium] 80 MG Tablet) PO SCH (22:00)
[2022-06-09] MEDS ORDERED: METOCLOPRAMIDE HCL 5 MG PO SCH (22:00)
[2022-06-09] MEDS ORDERED: NON-FORMULARY ITEM (Sitagliptin Phos/Metformin Hcl [Janumet 50-1,000 Mg Tablet] 1 EACH Tab PO SCH (22:00)
[2022-06-10] MEDS: DUONEB 0.5-3 MG/3 ml Neb IH SCH ×4 (01:36→19:49)
[2022-06-10 05:55] LABS: Absolute Neutrophil Ct (ANC) 5.89 x10^3/uL (1.4-6.9); Basophil (Absolute #) 0.01 x10^3/uL (0-0.4); Eosinophil (Absolute #) 0 x10^3/uL (0-0.5); Hematocrit 50.9 % (42-50); Hemoglobin 16.4 g/dL (12.5-18.0); Lymphocyte (Absolute #) 0.52 x10^3/uL (1.0-4.6); Lymphocytes % 7.7 % (24.0-44.0); Mean Cell Volume 93.2 fL (78-100); Mean Corpuscular Hgb Concent. 32.2 g/dL (32-36); Mean Platelet Volume 10.1 fL (7.5-11.0); Monocyte (Absolute #) 0.31 x10^3/uL (0.0-1.3); Monocytes % 4.6 % (0.0-12.0); Neutrophil % 87.2 % (36.0-66.0); Platelet Count 183 x10^3/uL (150-450); Red Blood Count 5.46 x10^6/uL (4.1-5.6); Red Cell Distribution Width 15.2 % (11.5-14.0); White Blood Count 6.8 x10^3/uL (4.0-10.5)
[2022-06-10] MEDS: solu-MEDROL 60 MG, Sterile H2O 10 ml 2 ML IV SCH ×8 (05:58→21:29)
[2022-06-10 06:21] LABS: BLOOD UREA NITROGEN 17 mg/dL (9-20); CHLORIDE 97 mmol/L (98-107); Calcium 8.9 mg/dL (8.4-10.2); Carbon Dioxide 31 mmol/L (22-30); Creatinine 1 0.49 mg/dL (0.66-1.25); EST GLOMERULAR FILTRATION RATE > 60.0 ML/MIN; Glucose 298 mg/dL (74-106); Potassium 3.9 mmol/L (3.5-5.1); SODIUM 135 mmol/L (137-145)
[2022-06-10] MEDS: Januvia 50 MG PO SCH ×2 (08:06→17:20)
[2022-06-10] MEDS: AMARYL 4 MG PO SCH ×2 (08:06→17:20)
[2022-06-10] MEDS: Glucophage 500 MG PO SCH ×2 (08:06→17:20)
[2022-06-10] MEDS: Reglan 10 MG PO SCH ×3 (08:06→21:30)
[2022-06-10] MEDS: ENOXAPARIN SODIUM SQ SCH (08:07)
[2022-06-10] MEDS: Tamiflu 75MG Capsule PO SCH ×2 (08:07→21:30)
[2022-06-10] MEDS: NEURONTIN PO SCH ×2 (08:07→21:30)
[2022-06-10] MEDS: Protonix 40MG Tablet PO SCH (08:07)
[2022-06-10] MEDS: KEPPRA PO SCH (08:07)
[2022-06-10] MEDS: Cymbalta 30 MG Capsule PO SCH (08:07)
[2022-06-10] MEDS: PATIENT OWN MEDICATION PO SCH (08:08)
[2022-06-10] MEDS: Lantus Insulin SQ SCH ×2 (08:08→21:29)
[2022-06-10] MEDS: LOPID PO SCH ×2 (08:09→21:31)
[2022-06-10] MEDS: ROCEPHIN 2 Gm-D5w 50ML BAG** 2 G/50 ML IVPB IV SCH (08:09)
[2022-06-10] MEDS: THEOPHYLLINE ER 24HR PO SCH ×2 (08:09→21:31)
[2022-06-10] MEDS: Zithromax 500 MG/ 250 ML NaCl Premix 500 MG/250 ML IVPB IV SCH (08:48)
[2022-06-10] MEDS ORDERED: NON-FORMULARY ITEM (Lisinopril/Hydrochlorothiazide [Lisinopril-Hctz 20-25 Mg Tab] 1 EACH T PO SCH (10:00)
[2022-06-10] MEDS ORDERED: PIOGLITAZONE HCL 45 MG PO SCH (10:00)
[2022-06-10] MEDS ORDERED: PROTONIX 40 MG IV IV SCH (10:00)
[2022-06-10] MEDS ORDERED: NON-FORMULARY ITEM (Duloxetine Hcl [Cymbalta] 60 MG Capsule.Dr) PO SCH (10:00)
[2022-06-10] MEDS ORDERED: LEVETIRACETAM 1000 MG PO SCH (10:00)
[2022-06-10] MEDS ORDERED: ROCEPHIN 2 Gm-D5w 50ML BAG** 2 G/50 ML IVPB IV SCH (10:00)
[2022-06-10 11:00] LABS: Slide Review 1 YES
[2022-06-10] MEDS: Toprol Xl 50 MG PO SCH ×3 (11:31→23:19)
[2022-06-10] MEDS: hydroDIURIL 25 MG PO SCH ×2 (11:31→11:39)
[2022-06-10] MEDS: Zestril 20 MG PO SCH (11:32)
[2022-06-10] MEDS: Ativan 0.5 MG PO SCH ×3 (11:38→21:30)
[2022-06-10] MEDS: Aldactone 25 MG PO SCH (11:39)
[2022-06-10] MEDS: HUMALOG SQ PRN ×3 (11:43→21:57)
[2022-06-10] MEDS: PLAVIX Tablet PO SCH (14:25)
[2022-06-10] MEDS: Nicoderm CQ 21 MG TOP SCH (14:25)
[2022-06-10] MEDS: ECOTRIN 81 MG PO SCH (14:26)
--- NOTE | 2022-06-10 14:40 | PCM.HP ---
History of Present Illness - Chief Complaint Chief Complaint: PNEUMONIA, INFLUENZA A, COPD EXACERBATION History of Present Illness: is a 62 year old male patient of Dr Carson with COPD oxygen dependant who presented to ER c/o cough and malaise x 1 week now with shortness of breath and wheezing.PMHx includes HTN,HLD, DM2,arrythmia on anticoag,heavy tabacco use,Sleep apnea,arthritis,seizures ER eval show Influenza A with pneumonia. Patient is admitted to [facility] for IV antibiotics and Tamiflu and solumedrol . RT to follow O2 and nebulizer treatments. - Review of Systems Constitutional: Fatigue, Malaise Eyes: No Symptoms Ears, Nose, & Throat: Nose Congestion Respiratory: Cough, Short Of Breath, Wheezing Cardiac: Other (chest tightness relieved with inhaler) Genitourinary Symptoms: No Symptoms Musculoskeletal: Arthralgias Skin: No Symptoms Neurological: No Symptoms Medications & Allergies Home Medications: Home Medication List Aspirin 81 mg PO DAILY 02/16/21 [History Confirmed 06/09/22] Dulaglutide [Trulicity] 3 mg SQ WEEKLY 02/16/21 [History Confirmed 06/09/22] Duloxetine HCl [Cymbalta] 60 mg PO DAILY 02/16/21 [History Confirmed 06/09/22] Gabapentin [Neurontin ] 300 mg PO BID 02/16/21 [History Confirmed 06/09/22] Gemfibrozil [Lopid] 600 mg PO BID 02/16/21 [History Confirmed 06/09/22] Pioglitazone HCl [Actos] 30 mg PO DAILY 02/16/21 [History Confirmed 06/09/22] Pravastatin Sodium 80 mg PO HS 02/16/21 [History Confirmed 06/09/22] Tamsulosin HCl 0.4 mg [Flomax 0.4 MG] 0.4 mg PO HS 02/16/21 [History Confirmed 06/09/22] Insulin Glargine [Lantus Insulin] 50 units SQ BID 10/24/21 [History Confirmed 06/09/22] Insulin Lispro [Humalog Darvin Kwikpen] 1 unit SQ ACHS 10/24/21 [History Confirmed 06/09/22] Lisinopril/Hydrochlorothiazide [Lisinopril-Hctz 20-25 mg Tab] 1 each PO DAILY 10/24/21 [History Confirmed 06/09/22] Theophylline Anhydrous [Theophylline] 400 mg PO BID 30 Days #60 cap 10/27/21 [Rx Confirmed 06/09/22] Clopidogrel Bisulfate [Clopidogrel] 1 tab PO DAILY 06/09/22 [History Confirmed 06/09/22] Glimepiride 4 mg [Amaryl 4 mg] 4 mg PO BID 06/09/22 [History Confirmed 06/09/22] Metoclopramide HCl 5 mg [Reglan 5 MG] 1 tab PO TID 06/09/22 [History C onfirmed 06/09/22] Metoprolol Succinate 50 mg [Toprol Xl 50 MG] 1 tab PO BID 06/09/22 [History Confirmed 06/09/22] PANTOPRAZOLE 40 mg Tablet [Protonix 40MG Tablet] 1 tab PO DAILY 06/09/22 [History Confirmed 06/09/22] Sitagliptin Phos/Metformin HCl [Janumet 50-1,000 mg Tablet] 1 tab PO BID 06/09/22 [History Confirmed 06/09/22] levETIRAcetam [Levetiracetam] 500 mg PO QAM 06/09/22 [History Confirmed 06/10/22] levETIRAcetam [Levetiracetam] 1,000 mg PO HS 06/10/22 [History Confirmed 06/10/22] Allergies/Adverse Reactions: Allergies Allergy/AdvReac Type Severity Reaction Status Date / Time amoxicillin AdvReac Severe Vomiting Verified 06/09/22 09:56 - Past Medical History Past Medical History: Yes Neurological History: Peripheral Neuropathy, Seizures ENT History: Cataracts Cardiac History: Arrhythmia, Hypertension Respiratory History: COPD, Sleep Apnea Endocrine Medical History: Diabetes Type II Musculoskelatal History: Arthritis GI Medical History: No Pertinent History History: No Pertinent History Pyscho-Social History: No Pertinent History Male Reproductive Disorders: Prostate Problems - Past Surgical History Past Surgical History: Yes Neuro Surgical History: No Pertinent History Cardiac History: No Pertinent History Respiratory Surgery: No Pertinent History GI Surgical History: Cholecystectomy Genitourinary Surgical Hx: No Pertinent History Musculskeletal Surgical Hx: Joint Replacement Male Surgical History: No Pertinent History Other Surgical History: left knee - Social History Smoking Status: Current every day smoker How long have you smoked: 50 YEARS Exposure to second hand smoke: Yes Alcohol: None Drug Use: none - Physical Exam Vital Signs: Vital Signs - 24 hr Temp Pulse Resp BP Pulse Ox 06/10/22 13:06 79 22 95 06/10/22 11:39 98.0 F 86 18 106/53 92 L 06/10/22 08:01 92 L 06/10/22 07:30 97.6 F 72 20 97/52 94 L 06/10/22 07:05 79 20 93 L 06/10/22 04:00 97.7 F 90 20 124/65 92 L 06/10/22 01:36 96 H 20 93 L 06/09/22 23:54 97.8 F 99 H 22 137/78 94 L 06/09/22 20:48 108 H 22 92 L 06/09/22 20:00 98.0 F 76 22 133/62 90 L 06/09/22 14:40 103 H 20 95 General Appearance: no apparent distress, other (sitting at the side of the bed leaning on bedside table -states eaiest to breath in this position) Neurologic Exam: alert, oriented x 3, cooperative, 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 II-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 nml as tested, normal mood/affect Eye Exam: eyes nml inspection Ears, Nose, Throat Exam: moist mucous membranes, other (mild nasal congestion) Neck Exam: normal inspection Respiratory Exam: diminished breath sounds, wheezing (mid bilateral) Cardiovascular Exam: regular rate/rhythm Gastrointestinal/Abdomen Exam: soft, normal bowel sounds, No tenderness Rectal Exam: not done Back Exam: normal inspection Extremity Exam: other (chronic skin changes darkening BLE ankles.pitting ededm 1-2+/4 no calf tenderness.), No calf tenderness Skin Exam: normal color, warm, dry, other Results - Labs Lab/Micro Results: Lab Results-Last 24 Hours 06/09/22 06/09/22 06/09/22 Range/Units 14:17 16:25 18:40 WBC (4.0-10.5) x10^3/uL RBC (4.1-5.6) x10^6/uL Hgb (12.5-18.0) g/dL Hct (42-50) % MCV (78-100) fL MCH (26-32) pg MCHC (32-36) g/dL RDW (11.5-14.0) % Plt Count (150-450) x10^3/uL MPV (7.5-11.0) fL Gran % (36.0-66.0) % Immature Gran % (Auto) (0.00-0.4) % Nucleat RBC Rel Count (0.00-0.1) % Eos # (Auto) (0-0.5) x10^3/uL Immature Gran # (Auto) (0.00-0.03) x10^3u/L Absolute Lymphs (auto) (1.0-4.6) x10^3/uL Absolute Monos (auto) (0.0-1.3) x10^3/uL Absolute Nucleated RBC (0.00-0.01) x10^3u/L Lymphocytes % (24.0-44.0) % Monocytes % (0.0-12.0) % Eosinophils % (0.00-5.0) % Basophils % (0.0-0.4) % Absolute Granulocytes (1.4-6.9) x10^3/uL Basophils # (0-0.4) x10^3/uL Sodium (137-145) mmol/L Potassium (3.5-5.1) mmol/L Chloride (98-107) mmol/L Carbon Dioxide (22-30) mmol/L Anion Gap (5-15) MEQ/L BUN (9-20) mg/dL Creatinine (0.66-1.25) mg/dL Estimated GFR ML/MIN Glucose (74-106) mg/dL POC Glucometer 327 H (74 to 106) mg/dL Hemoglobin A1c (4.5-6.0) % Calcium (8.4-10.2) mg/dL Troponin I 0.018 < 0.012 (0.000-0.034) ng/mL Slides for Path Review 06/09/22 06/10/22 06/10/22 Range/Units 21:43 05:30 05:30 WBC 6.8 (4.0-10.5) x10^3/uL RBC 5.46 (4.1-5.6) x10^6/uL Hgb 16.4 (12.5-18.0) g/dL Hct 50.9 H (42-50) % MCV 93.2 (78-100) fL MCH 30.0 (26-32) pg MCHC 32.2 (32-36) g/dL RDW 15.2 H (11.5-14.0) % Plt Count 183 (150-450) x10^3/uL MPV 10.1 (7.5-11.0) fL Gran % 87.2 H (36.0-66.0) % Immature Gran % (Auto) 0.4 (0.00-0.4) % Nucleat RBC Rel Count 0.0 (0.00-0.1) % Eos # (Auto) 0 (0-0.5) x10^3/uL Immature Gran # (Auto) 0.03 (0.00-0.03) x10^3u/L Absolute Lymphs (auto) 0.52 L (1.0-4.6) x10^3/uL Absolute Monos (auto) 0.31 (0.0-1.3) x10^3/uL Absolute Nucleated RBC 0.00 (0.00-0.01) x10^3u/L Lymphocytes % 7.7 L (24.0-44.0) % Monocytes % 4.6 (0.0-12.0) % Eosinophils % 0.0 (0.00-5.0) % Basophils % 0.1 (0.0-0.4) % Absolute Granulocytes 5.89 (1.4-6.9) x10^3/uL Basophils # 0.01 (0-0.4) x10^3/uL Sodium 135 L (137-145) mmol/L Potassium 3.9 (3.5-5.1) mmol/L Chloride 97 L (98-107) mmol/L Carbon Dioxide 31 H (22-30) mmol/L Anion Gap 10.0 (5-15) MEQ/L BUN 17 (9-20) mg/dL Creatinine 0.49 L (0.66-1.25) mg/dL Estimated GFR > 60.0 ML/MIN Glucose 298 H (74-106) mg/dL POC Glucometer 278 H (74 to 106) mg/dL Hemoglobin A1c (4.5-6.0) % Calcium 8.9 (8.4-10.2) mg/dL Troponin I (0.000-0.034) ng/mL Slides for Path Review YES 06/10/22 06/10/22 06/10/22 Range/Units 05:30 07:14 11:28 WBC (4.0-10.5) x10^3/uL RBC (4.1-5.6) x10^6/uL Hgb (12.5-18.0) g/dL Hct (42-50) % MCV (78-100) fL MCH (26-32) pg MCHC (32-36) g/dL RDW (11.5-14.0) % Plt Count (150-450) x10^3/uL MPV (7.5-11.0) fL Gran % (36.0-66.0) % Immature Gran % (Auto) (0.00-0.4) % Nucleat RBC Rel Count (0.00-0.1) % Eos # (Auto) (0-0.5) x10^3/uL Immature Gran # (Auto) (0.00-0.03) x10^3u/L Absolute Lymphs (auto) (1.0-4.6) x10^3/uL Absolute Monos (auto) (0.0-1.3) x10^3/uL Absolute Nucleated RBC (0.00-0.01) x10^3u/L Lymphocytes % (24.0-44.0) % Monocytes % (0.0-12.0) % Eosinophils % (0.00-5.0) % Basophils % (0.0-0.4) % Absolute Granulocytes (1.4-6.9) x10^3/uL Basophils # (0-0.4) x10^3/uL Sodium (137-145) mmol/L Potassium (3.5-5.1) mmol/L Chloride (98-107) mmol/L Carbon Dioxide (22-30) mmol/L Anion Gap (5-15) MEQ/L BUN (9-20) mg/dL Creatinine (0.66-1.25) mg/dL Estimated GFR ML/MIN Glucose (74-106) mg/dL POC Glucometer 323 H 344 H (74 to 106) mg/dL Hemoglobin A1c 8.05 H (4.5-6.0) % Calcium (8.4-10.2) mg/dL Troponin I (0.000-0.034) ng/mL Slides for Path Review Accuchecks Date 06/10/22 Date 06/10/22 Date 06/09/22 Time 07:30 Time 17:10 - Radiology Impressions Radiology Exams & Impressions: Radiology Procedures Category Date Time Status CHEST 1 VIEW (PORTABLE) Stat Exams 06/09/22 11:00 Completed - Other Procedures and Tests Respiratory Therapy 06/09/22 14:18 BiPap/CPAP ROUTINE Assessment/Plan (1) Influenza A Current Visit: Yes Status: Acute Assessment & Plan: started Tamiflu Code(s): J10.1 - FLU DUE TO OTH IDENT INFLUENZA VIRUS W OTH RESP MANIFEST (2) COPD exacerbation Current Visit: Yes Status: Acute Assessment & Plan: started Solumedrol,RT monitoring O2 Code(s): J44.1 - CHRONIC OBSTRUCTIVE PULMONARY DISEASE W (ACUTE) EXACERBATION (3) Pneumonia Current Visit: Yes Status: Acute Qualifiers: Laterality: bilateral Assessment & Plan: ER started Rocephin- CBC normal but with left shift Code(s): J18.9 - PNEUMONIA, UNSPECIFIED ORGANISM (4) DM2 (diabetes mellitus, type 2) Current Visit: Yes Status: Chronic Qualifiers: Diabetes mellitus [employer] insulin use: with care home use Assessment & Plan: A1C= 8%
[2022-06-10] MEDS: Flomax 0.4 MG PO SCH (21:30)
[2022-06-10] MEDS: ZOCOR 20MG PO SCH (21:31)
[2022-06-10] MEDS ORDERED: KEPPRA PO SCH (22:00)
[2022-06-11] MEDS: DUONEB 0.5-3 MG/3 ml Neb IH SCH ×2 (01:31→07:08)
[2022-06-11] MEDS: solu-MEDROL 60 MG, Sterile H2O 10 ml 2 ML IV SCH ×2 (05:59)
[2022-06-11 07:29] VITALS: O2SAT 95
[2022-06-11] MEDS: Januvia 50 MG PO SCH (08:17)
[2022-06-11] MEDS: Glucophage 500 MG PO SCH (08:17)
[2022-06-11] MEDS: HUMALOG SQ PRN ×2 (08:17→11:33)
[2022-06-11] MEDS: AMARYL 4 MG PO SCH (08:17)
[2022-06-11] MEDS: Zithromax 500 MG/ 250 ML NaCl Premix 500 MG/250 ML IVPB IV SCH (08:20)
--- NOTE | 2022-06-11 09:35 | PCM.NOTE ---
Date and Time: 06/11/22931 Subjective Assessment: Patient states breathing better still fatigued ,appetite is good Objective Exam General Appearance: no apparent distress Neurologic Exam: alert, oriented x 3, cooperative, normal mood/affect Skin Exam: normal color, warm, dry Ears, Nose, Throat Exam: moist mucous membranes, other (nasal congestion) Neck Exam: normal inspection Respiratory Exam: diminished breath sounds, wheezing Cardiovascular Exam: regular rate/rhythm Gastrointestinal/Abdomen Exam: soft, No tenderness Extremity Exam: pedal edema OBJECTIVE DATA Vital Signs: Vital Signs - 24 hr Temp Pulse Resp BP Pulse Ox 06/11/22 07:26 75 18 95 06/11/22 07:22 98.1 F 86 17 141/71 96 06/11/22 04:00 87 20 128/61 92 L 06/11/22 01:35 90 20 87 L 06/10/22 23:23 98.0 F 92 H 20 146/65 93 L 06/10/22 20:00 98.2 F 94 H 20 118/60 94 L 06/10/22 19:49 94 H 20 94 L 06/10/22 15:06 98.3 F 72 20 111/56 90 L 06/10/22 13:06 79 22 95 06/10/22 11:39 98.0 F 86 18 106/53 92 L Pain Assessment - Last Documented Pain Intensity 0 Pain Scale Used 0-10 Pain Scale Intake and Output: Intake & Output 06/08/22 06/09/22 06/10/22 06/11/22 11:59 11:59 11:59 11:59 Intake Total 1340 2290 Balance 1340 2290 Weight 139.2 kg 136.9 kg Lab Results: Lab Results-Last 24 Hours 06/10/22 06/10/22 06/10/22 Range/Units 05:30 05:30 11:28 POC Glucometer 344 H (74 to 106) mg/dL Hemoglobin A1c 8.05 H (4.5-6.0) % Slides for Path Review YES 06/10/22 06/10/22 06/11/22 Range/Units 16:19 21:47 07:08 POC Glucometer 388 H 421 H 298 H (74 to 106) mg/dL Hemoglobin A1c (4.5-6.0) % Slides for Path Review Radiology Exams: Radiology Procedures Category Date Time Status CHEST 1 VIEW (PORTABLE) Stat Exams 06/09/22 11:00 Completed Assessment/Plan (1) Influenza A Current Visit: Yes Status: Acute Assessment & Plan: was started on Tamiflu Code(s): J10.1 - FLU DUE TO OTH IDENT INFLUENZA VIRUS W OTH RESP MANIFEST (2) COPD exacerbation Current Visit: Yes Status: Acute Assessment & Plan: improved Code(s): J44.1 - CHRONIC OBSTRUCTIVE PULMONARY DISEASE W (ACUTE) EXACERBATION (3) Pneumonia Current Visit: Yes Status: Acute Qualifiers: Laterality: bilateral Code(s): J18.9 - PNEUMONIA, UNSPECIFIED ORGANISM (4) DM2 (diabetes mellitus, type 2) Current Visit: Yes Status: Chronic Qualifiers: 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
[2022-06-11] MEDS: Toprol Xl 50 MG PO SCH (09:43)
[2022-06-11] MEDS: Protonix 40MG Tablet PO SCH (09:43)
[2022-06-11] MEDS: PLAVIX Tablet PO SCH (09:43)
[2022-06-11] MEDS: hydroDIURIL 25 MG PO SCH (09:43)
[2022-06-11] MEDS: Cymbalta 30 MG Capsule PO SCH (09:43)
[2022-06-11] MEDS: Ativan 0.5 MG PO SCH (09:43)
[2022-06-11] MEDS: ECOTRIN 81 MG PO SCH (09:43)
[2022-06-11] MEDS: NEURONTIN PO SCH (09:43)
[2022-06-11] MEDS: Tamiflu 75MG Capsule PO SCH (09:43)
[2022-06-11] MEDS: Zestril 20 MG PO SCH (09:43)
[2022-06-11] MEDS: Reglan 10 MG PO SCH (09:44)
[2022-06-11] MEDS: ENOXAPARIN SODIUM SQ SCH (09:45)
[2022-06-11] MEDS: Lantus Insulin SQ SCH (09:45)
[2022-06-11] MEDS: PATIENT OWN MEDICATION PO SCH (09:45)
[2022-06-11] MEDS: LOPID PO SCH (09:46)
[2022-06-11] MEDS ORDERED: KEPPRA PO SCH (10:00)
[2022-06-11] MEDS ORDERED: NON-FORMULARY ITEM (Aspirin [Aspirin] 81 MG Tablet) PO SCH (10:00)
[2022-06-11] MEDS: ROCEPHIN 2 Gm-D5w 50ML BAG** 2 G/50 ML IVPB IV SCH (10:13)
[2022-06-11] MEDS: THEOPHYLLINE ER 24HR PO SCH (10:13)
--- NOTE | 2022-06-11 10:15 | PCM.DCORD ---
- Discharge Disposition: Home, Self-Care Condition: Stable Prescriptions: New Prednisone 10 mg [Deltasone 10 mg] 10 mg PO DAILY #20 tablet Oseltamivir Phosphate [Tamiflu] 75 mg PO BID 2 Days #4 cap Continue Duloxetine HCl [Cymbalta] 60 mg PO DAILY Aspirin 81 mg PO DAILY Gabapentin [Neurontin ] 300 mg PO BID Pioglitazone HCl [Actos] 30 mg PO DAILY Gemfibrozil [Lopid] 600 mg PO BID Tamsulosin HCl 0.4 mg [Flomax 0.4 MG] 0.4 mg PO HS Pravastatin Sodium 80 mg PO HS Dulaglutide [Trulicity] 3 mg SQ WEEKLY Insulin Glargine [Lantus Insulin] 50 units SQ BID Insulin Lispro [Humalog Darvin Kwikpen] 1 unit SQ ACHS Lisinopril/Hydrochlorothiazide [Lisinopril-Hctz 20-25 mg Tab] 1 each PO DAILY Theophylline Anhydrous [Theophylline] 400 mg PO BID 30 Days #60 cap levETIRAcetam [Levetiracetam] 500 mg PO QAM Metoprolol Succinate 50 mg [Toprol Xl 50 MG] 1 tab PO BID PANTOPRAZOLE 40 mg Tablet [Protonix 40MG Tablet] 1 tab PO DAILY Metoclopramide HCl 5 mg [Reglan 5 MG] 1 tab PO TID Clopidogrel Bisulfate [Clopidogrel] 1 tab PO DAILY Sitagliptin Phos/Metformin HCl [Janumet 50-1,000 mg Tablet] 1 tab PO BID Glimepiride 4 mg [Amaryl 4 mg] 4 mg PO BID levETIRAcetam [Levetiracetam] 1,000 mg PO HS Follow up with: KWESI TAVERAS MD [Primary Care Provider] -
[2022-06-11 11:43] VITALS: BP 124/67; PULSE 85
[2022-06-11] MEDS ORDERED: Keppra 250 MG PO SCH (22:00)
== END 2022-06-11 11:55 | disposition home or self-care (01) ==
LOC: ED 09:52 → MED SURG 13:22
PROVIDERS: ADMIT Family Medicine; ATTEND Family Medicine
DX: J10.1 Influenza due to other identified influenza virus with other respiratory manifestations (principal); J44.1 Chronic obstructive pulmonary disease with (acute) exacerbation; J18.9 Pneumonia, unspecified organism; E11.9 Type 2 diabetes mellitus without complications; I10 Essential (primary) hypertension; E78.5 Hyperlipidemia, unspecified; I49.9 Cardiac arrhythmia, unspecified; Z79.01 Long term (current) use of anticoagulants; Z79.899 Other long term (current) drug therapy; Z20.828 Contact with and (suspected) exposure to other viral communicable diseases; Z99.81 Dependence on supplemental oxygen; Z72.0 Tobacco use
CPT/HCPCS: 0241U; 36000; 36415; 71045; 80048; 80053; 82947; 83036; 83605; 83735; 83880; 84145; 84484; 85025; 87040; 93005; 93041; 93268; 94003; 94640; 94660; 94760; 96374; 99285; G0378; J0456; J0696; J1650; J1817; J2930; A9270-GY